=== PATIENT | female | born 1995 | race Hispanic/Latino ===

== ENCOUNTER 2024-11-09 11:59 | Emergency (ER) | payer OTHER, SELFPAY ==
--- NOTE | 2024-11-09 14:01 | EDPHYS ---
Physician Documentation [facility] Name: Hazel Colon Age: 29 yrs Sex: Female : 1995 Arrival Date: 11/09/2024 Time: 11:59 Bed IW1 Private MD: ED Physician Alison Forrester HPI: 11/09 12:20 This 29 yrs old Female presents to ER via Ambulatory with complaints of Eye sw6 Problem. 12:20 The patient presents from home for evaluation for pain and redness to her right eye sw6 that started just prior to arrival when she accidentally squirted some brown pain into her eye from a tube that she was trying to open. She does not wear any glasses or contacts. No blurry vision. She did wash her eye out prior to come to the ER. She reports she is more sensitive to the light with that eye now. She is unsure of her last tetanus vaccine. Here for vision.. Historical: - Allergies: 12:10 No Known Allergies; ap3 - Home Meds: 12:10 None [Active]; ap3 - PMHx: 12:10 None; ap3 - Immunization history:: Client reports receiving the 2nd dose of the Covid vaccine. - Infectious Disease History:: Denies. - Social history:: Smoking status: Patient denies any tobacco usage or history of. ROS: 12:20 Constitutional: Negative for fever, chills, and weight loss, sw6 12:20 ENT: Negative for injury, pain, and discharge, Cardiovascular: Negative for chest pain, palpitations, and edema, Respiratory: Negative for shortness of breath, cough, wheezing, and pleuritic chest pain, Abdomen/GI: Negative for abdominal pain, nausea, vomiting, diarrhea, and constipation, MS/Extremity: Negative for injury and deformity, Neuro: Negative for headache, weakness, numbness, tingling, and seizure, Psych: Negative for depression, anxiety, suicide ideation, homicidal ideation, and hallucinations, 12:20 Eyes: Positive for photophobia, redness, tearing, Negative for blurry vision, Exam: 12:20 Constitutional: This is a well developed, well nourished patient who is awake, alert, sw6 and in no acute distress. 12:20 Eyes: Pupils: equal, round, and reactive to light and accomodation, Extraocular movements: intact throughout, Conjunctiva: injected, in the right eye, Visual walter: are intact, 12:20 Cardiovascular: Rate: normal, 12:20 Respiratory: the patient does not display signs of respiratory distress, 12:20 Abdomen/GI: Inspection: abdomen appears normal, 12:20 Musculoskeletal/extremity: Exam is negative for acute changes, 12:20 Neuro: Exam negative for focal neuro deficits, Vital Signs: 12:08 BP 138 / 86; Pulse 78; Resp 18; Temp 98.5; Pulse Ox 100% ; Weight 89.36 kg; Height 5 ap3 ft. 5 in. ; Pain 7/10; 12:08 Body Mass Index 32.78 (89.36 kg, 165.1 cm) ap3 12:08 Pain Scale: Adult ap3 MDM: 12:20 Medical Screening Exam initiated sw6 13:59 ED course: Before the patient's right eye could be evaluated for corneal abrasion as sw6 well as irrigation for possible retained foreign body she did leave the department without notifying staff.. 14:00 Data reviewed: vital signs, nurses notes. sw6 Administered Medications: 14:02 Not Given (Patient Eloped): fluoresceinstrip 1 strip Ophthalmic once iw 14:02 Not Given (Patient Eloped): tetracainedrops 0.5 % 1 drops Ophthalmic once iw Disposition Summary: 11/09/24 14:00 Left Against Medical Advice Notes: Location: Home sw6 Problem: new sw6 Symptoms: are unchanged sw6 Condition: Stable sw6 Diagnosis - Ocular pain, right eye sw6 Signatures: Nano Alaniz RN RN ap3 Alison Forrester MD MD sw6 Karo Forrester RN iw Corrections: (The following items were deleted from the chart) 14:02 13:50 Eye Tray ordered. sw6 iw
--- NOTE | 2024-11-09 14:01 | ER ---
Nurse's Notes [facility] Name: Hazel Colon Age: 29 yrs Sex: Female : 1995 Arrival Date: 11/09/2024 Time: 11:59 Bed IW1 Private MD: Diagnosis: Ocular pain, right eye Presentation: 11/09 12:08 Chief complaint: Patient states: she was doing a craft, and squirted a tube of brown ap3 paint into her right eye. patient reports that she flushed her eye prior to arrival with water and saline. Coronavirus screen: At this time, the client does not indicate any symptoms associated with coronavirus-19. Ebola Screen: No symptoms or risks identified at this time. Initial Sepsis Screen: Does the patient meet any 2 criteria? No. Patient's initial sepsis screen is negative. Does the patient have a suspected source of infection? No. Patient's initial sepsis screen is negative. Risk Assessment: Do you want to hurt yourself or someone else? Patient reports no desire to harm self or others. Onset of symptoms was November 09, 2024 at 11:40. 12:08 Method Of Arrival: Ambulatory ap3 12:08 Acuity: JOSE LUIS 3 ap3 Triage Assessment: 12:10 General: Appears in no apparent distress. Behavior is calm, cooperative, appropriate ap3 for age. Pain: Complains of pain in right eye Pain began suddenly, 30 min ago. EENT: Reports pain in right eye. Neuro: Level of Consciousness is awake, alert, obeys commands, Oriented to person, place, time, situation, Appropriate for age. Cardiovascular: Patient's skin is warm and dry. Respiratory: Airway is patent Respiratory effort is even, unlabored, Respiratory pattern is regular, symmetrical. Historical: - Allergies: 12:10 No Known Allergies; ap3 - Home Meds: 12:10 None [Active]; ap3 - PMHx: 12:10 None; ap3 - Immunization history:: Client reports receiving the 2nd dose of the Covid vaccine. - Infectious Disease History:: Denies. - Social history:: Smoking status: Patient denies any tobacco usage or history of. Screenin:11 [facility] ED Fall Risk Assessment (Adult) History of falling in the last 3 months, ap3 including since admission No falls in past 3 months (0 pts) Confusion or Disorientation No (0 pts) Intoxicated or Sedated No (0 pts) Impaired Gait No (0 pts) Mobility Assist Device Used No (0 pt) Altered Elimination No (0 pt) Score/Fall Risk Level 0 - 2 = Low Risk Oriented to surroundings, Maintained a safe environment, Educated pt \T\ family on fall prevention, incl call for assistance when getting out of bed, Assessed \T\ reinforced patient's understanding of fall precautions, Hourly rounding (assess needs \T\ fall precautionary measures) done, Used ambulatory aids as needed (educated on \T\ assisted with), Used gait belt as appropriate. Abuse screen: Denies threats or abuse. Nutritional screening: No deficits noted. Tuberculosis screening: No symptoms or risk factors identified. Assessment: 13:50 Reassessment: pt not in lobby, registration reports pt left. iw Vital Signs: 12:08 BP 138 / 86; Pulse 78; Resp 18; Temp 98.5; Pulse Ox 100% ; Weight 89.36 kg; Height 5 ap3 ft. 5 in. ; Pain 7/10; 12:08 Body Mass Index 32.78 (89.36 kg, 165.1 cm) ap3 12:08 Pain Scale: Adult ap3 ED Course: 12:01 Patient arrived in ED. im 12:10 Triage completed. ap3 12:11 Arm band placed on right wrist. ap3 12:20 Alison Forrester MD is Attending Physician. sw6 Administered Medications: 14:02 Not Given (Patient Eloped): fluoresceinstrip 1 strip Ophthalmic once iw 14:02 Not Given (Patient Eloped): tetracainedrops 0.5 % 1 drops Ophthalmic once iw Outcome: 13:50 AMA Left before signing form, kb3 13:50 unknown kb3 14:16 Patient left the ED. kb3 Signatures: Karo Forrester RN RN iw Nano Alaniz RN RN ap3 Madie Richardson RN RN kb3 Ramona Manrique Alison Forrester MD MD sw6
[2024-11-09 14:40] VITALS: BP 138/86; TEMP 98.5; O2SAT 100
== END 2024-11-09 14:16 | disposition left against medical advice (07) ==
LOC: ER 11:59
DX: H57.11 Ocular pain, right eye (principal); Z53.29 Procedure and treatment not carried out because of patient's decision for other reasons
CPT/HCPCS: 99281